=== PATIENT | male | born 1965 | race Caucasian/White ===

== ENCOUNTER → 2020-02-23 15:12 | Outpatient (BNVA) | payer SELFPAY | PROVIDERS: Family Provider Nurse Practitioner Family; PCP Nurse Practitioner Family; Visit Provider Nurse Practitioner Family | DX: I10 Essential (primary) hypertension (principal); E11.59 Type 2 diabetes mellitus with other circulatory complications; I25.10 Atherosclerotic heart disease of native coronary artery without angina pectoris; E78.5 Hyperlipidemia, unspecified; E11.9 Type 2 diabetes mellitus without complications | CPT/HCPCS: 80053; 80061; 82044; 83036 ==

== ENCOUNTER → 2022-01-08 09:40 | Outpatient (BNVA) | payer SELFPAY | PROVIDERS: Family Provider Nurse Practitioner Family; PCP Registered Nurse; Visit Provider Nurse Practitioner | DX: E11.59 Type 2 diabetes mellitus with other circulatory complications (principal); I25.10 Atherosclerotic heart disease of native coronary artery without angina pectoris; I10 Essential (primary) hypertension; M25.512 Pain in left shoulder; R53.83 Other fatigue | CPT/HCPCS: 80053; 80061; 83036; 84403; 84443; 85025 ==

== ENCOUNTER → 2022-01-16 00:01 | Outpatient (BNVA) | payer SELFPAY | PROVIDERS: Family Provider Nurse Practitioner Family; PCP Registered Nurse; Visit Provider Nurse Practitioner | DX: E11.59 Type 2 diabetes mellitus with other circulatory complications (principal); I25.10 Atherosclerotic heart disease of native coronary artery without angina pectoris; E78.5 Hyperlipidemia, unspecified | CPT/HCPCS: 80048 ==

== ENCOUNTER → 2022-04-24 16:39 | Outpatient (BNVA) | payer SELFPAY | PROVIDERS: Family Provider Nurse Practitioner Family; PCP Registered Nurse; Visit Provider Nurse Practitioner Family | DX: E11.9 Type 2 diabetes mellitus without complications (principal); L02.91 Cutaneous abscess, unspecified; E11.65 Type 2 diabetes mellitus with hyperglycemia; M25.50 Pain in unspecified joint; E11.40 Type 2 diabetes mellitus with diabetic neuropathy, unspecified | CPT/HCPCS: 87070; 87077; 87184 ==

== ENCOUNTER → 2023-07-21 13:18 | Outpatient (BNVA) | payer SELFPAY | PROVIDERS: Family Provider Nurse Practitioner Family; PCP Registered Nurse; Visit Provider Nurse Practitioner Family | DX: E11.40 Type 2 diabetes mellitus with diabetic neuropathy, unspecified (principal); E11.65 Type 2 diabetes mellitus with hyperglycemia | CPT/HCPCS: 80053; 81000; 83036; 84443; 85025 ==

== ENCOUNTER 2023-12-17 11:46 | Emergency (ER) | payer SELFPAY ==
--- NOTE | 2023-12-17 11:45 | ECG_ITS ---
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 Measurements Intervals [place] Rate: 99 P: 83 TX: 148 QRS: 83 QRSD: 90 T: 89 QT: 326 QTc: 419 Interpretive Statements SINUS RHYTHM Compared to ECG 11/07/2015 05:23:56 No significant changes Electronically Signed On 12-17-2023 18:41:40 CDT by Claudia August M.D. [id number] f
--- NOTE | 2023-12-17 11:47 | XRR_ITS ---
PROCEDURE INFORMATION: Exam: XR Chest Exam date and time: 12/17/2023 12:07 PM Age: 58 years old Clinical indication: Pain; Angina pectoris; Additional info: Cp TECHNIQUE: Imaging protocol: Radiologic exam of the chest. Views: 1 view. COMPARISON: No relevant prior studies available. FINDINGS: Lungs: Unremarkable. No consolidation. Pleural spaces: Unremarkable. No pleural effusion. No pneumothorax. Heart/Mediastinum: Unremarkable. No cardiomegaly. Bones/joints: Mild and moderate multilevel spondylosis. Surgical hardware attached to the lower cervical spine. XR/XR chest 1V portable [id number] IMPRESSION: No acute disease.
[2023-12-17 11:49] VITALS: BP 173/89; PULSE 95; RESP 16; TEMP 36.5; O2SAT 100; BMI 26.9
--- NOTE | 2023-12-17 12:17 | ED_ITS ---
HPI - Chest Pain 2 General: Chief Complaint: Chest Pain Stated Complaint: chest pain Time Seen by Provider: 12/17/23 12:01 Source: patient Mode of arrival: ambulatory Limitations: no limitations History of Present Illness: 58-year-old male states he started havin g chest pain at 11:00 he states the pain was a pressure type pain in the center of his chest he did take aspirin his pain is now 2 out of 10 had some slight dyspnea with that denies any vomiting or diarrhea denies any fevers. Associated symptoms: Deny abdominal pain, dyspnea, fever(s), nausea or vomiting Review of Systems 2 Const: Denies: fever(s), chills, body aches or change in appetite ENMT: Denies: throat pain or dental pain Card: Reports: chest pain Resp: Denies: dyspnea GI: Denies: abdominal pain, nausea, vomiting or diarrhea Musc: Denies: neck pain or back pain Skin/Breast: Denies: rash Neuro: Denies: headache(s) PFSH ED 2 PFSH: Medical History (Updated 12/17/23 @ 15:08 by Loren Nichols MD) Poor control type I diabetes mellitus Diabetes Hyperlipemia HTN (hypertension) Coronary artery disease due to type 2 diabetes mellitus Hyperlipidemia Social History Smoking and tobacco/nicotine status: never used tobacco/nicotine Physical Exam 2 Const: COMMON NORMALS: no acute distress, patient oriented x3 and healthy appearing HENMT: COMMON NORMALS: normocephalic and atraumatic HEAD & SCALP: n ormocephalic and atraumatic Neck/C-Spine: COMMON NORMALS: full ROM and supple Chest: COMMONS NORMALS: normal inspection of the chest and normal palpation of entire chest wall Resp: COMMON NORMALS: normal respiratory effort, No retractions, No use of accessory muscles and clear to auscultation bilaterally AUSCULTATION: clear to auscultation bilaterally Cardio: COMMON NORMALS: regular rate, regular rhythm and No murmurs present (Cardio) RATE: regular rate RHYTHM: regular rhythm GI: COMMON NORMALS: Normal to inspection, nondistended, normoactive bowel sounds present, Soft to palpation, non-tender and no masses PALPATION: Yes Soft to palpation Extremity: COMMON NORMALS: normal to inspection and full ROM Neuro: COMMON NORMALS: patient oriented x3, moves all extremities and no focal motor deficits Psych: COMMON NORMALS: mental status grossly normal, Normal thought process present and cooperative THOUGHT PROCESS: Normal thought process present Skin: COMMON NORMALS: no rashes or lesions noted and no wounds GENERAL SKIN EXAM: no rashes or lesions noted Course 2 Vital Signs: Vital signs: Vital Signs Temperature 97.7 F 12/17/23 11:49 Pulse Rate 95 12/17/23 11:49 Respiratory Rate 16 12/17/23 11:49 Blood Pressure 173/89 12/17/23 11:49 Pulse Oximetry 100 12/17/23 11:49 Oxygen Delivery Me thod Room Air 12/17/23 11:49 MDM - Chest Pain Medical Decision Making Patient presents here with chest pain atypical in nature he has been well- appearing here his heart enzymes here are normal no signs of acute coronary syndrome he has no signs of dissection or pulmonary emobism, he stable for discharge is to follow-up with PCP and return if worsening he understands agrees to plan Medical Records I reviewed the patient's medical records. Lab Data I reviewed the patient's lab results. 12/17/23 12:10 12/17/23 12:10 Radiology Impressions Chest X-Ray 12/17/23 11:47 IMPRESSION: No acute disease. Laboratory Results WBC 7.33 10^3/uL (3.29-11.43) 12/17/23 12:10 RBC 4.75 10^6/uL (3.85-5.65) 12/17/23 12:10 Hgb 14.90 g/dL (11.27-16.99) 12/17/23 12:10 Hct 41.7 % (37-53) 12/17/23 12:10 MCV 87.8 fl (82-101) 12/17/23 12:10 MCH 31.4 pg (27-33) 12/17/23 12:10 MCHC 35.7 g/dL (30-55) 12/17/23 12:10 RDW 12.0 % (12.1-15.1) L 12/17/23 12:10 Plt Count 216 10^3/cmm (157-399) 12/17/23 12:10 MPV 9.8 fL (7.4-10.4) 12/17/23 12:10 Neut % (Auto) 72.5 % 12/17/23 12:10 Lymph % (Auto) 19.0 % 12/17/23 12:10 [place] % (Auto) 6.7 % 12/17/23 12:10 Eos % (Auto) 0.5 % 12/17/23 12:10 Baso % (Auto) 0.8 % 12/17/23 12:10 Neut # (Auto) 5.31 10^3/uL (1.8-7.7) 12/17/23 12:10 Lymph # (Auto) 1.4 10^3/uL (0.8-4.8) 12/17/23 12:10 [place] # (Auto) 0.5 10^3/uL (0.2-0.9) 12/17/23 12:10 Eos # (Auto) 0.0 10^3/uL (0.0-0.8) 12/17/23 12:10 Baso # (Auto) 0.1 10^3/uL (0.0-0.1) 12/17/23 12:10 Nucleated RBC % (auto) 0 % 12/17/23 12:10 Nucleated RBCs # 0.0 /100WBC 12/17/23 12:10 PT 13.40 SECONDS (12.1-14.9) 12/17/23 12:10 INR 0.99 (0.8-1.2) 12/17/23 12:10 Sodium 130 mmol/L (136-145) L 12/17/23 12:10 Potassium 4.9 mmol/L (3.5-5.1) 12/17/23 12:10 Chloride 96 mmol/L (98-107) L 12/17/23 12:10 Carbon Dioxide 24 mmol/L (22-29) 12/17/23 12:10 Anion Gap 14.9 (5-19) 12/17/23 12:10 BUN 17 mg/dL (6-20) 12/17/23 12:10 Creatinine 0.7 mg/dL (0.7-1.2) 12/17/23 12:10 GFR Calculation 116.7 mL/min (90-130) 12/17/23 12:10 Glucose 410 mg/dL (65-115) H 12/17/23 12:10 Calculated Osmolality 289 mOsm/kg (285-295) 12/17/23 12:10 Calcium 10.0 mg/dL (8.5-10.5) 12/17/23 12:10 Total Bilirubin 1.3 mg/dL (0.15-1.2) H 12/17/23 12:10 AST 17 U/L (0-40) 12/17/23 12:10 ALT 15 U/L (0-41) 12/17/23 12:10 Alkaline Phosphatase 92 U/L (40-130) 12/17/23 12:10 Troponin T Baseline 12 ng/L (0-15) 12/17/23 12:10 Troponin T 120 Minute 10.50 ng/L (0-15) 12/17/23 14:18 Delta Troponin T -1.50 ABS# (0-10) L 12/17/23 14:18 Total Protein 7.2 g/dL (6.6-8.7) 12/17/23 12:10 Albumin 4.4 g/dL (3.5-5.2) 12/17/23 12:10 Globulin 2.8 g/dL (1.3-4.6) 12/17/23 12:10 Lipase 100 U/L (13-60) H 12/17/23 12:10 All radiology interpretation(s) finalized by discharge EKG Data EKG 1: I personally reviewed and interpreted this EKG as follows: EKG interpretation date: 12/17/23 EKG interpretation time: 13:36 Interpretation: nsr hr [address] or t wave abnormalities qrs 85 qtc 390 Discharge Plan Discharge Patient Disposition: Home Clinical Impression: Chest pain Condition: Stable Prescriptions: No Action amitriptyline 50 mg tablet 50 mg PO DAILY Qty: 30 1RF metformin 1,000 mg tablet 1,000 mg PO BIDWMEAL Qty: 180 0RF Discharge Orders: Discharge ED (Routine); Ordered 12/17/23 Ordered By: Loren Nichols Referrals: Zana Dutta FNP [Primary Care Provider] - 1-3 days Discharge Diet: Advance as tolerated Discharge Activity: Resume usual activity Patient Instructions: Chest Pain (ED) Coding Level of Care Code ED Center Consultant for Chg Pardeep
[2023-12-17 12:21] LABS: Basophils # 0.1 10^3/uL (0.0-0.1); Basophils % 0.8 %; Eosinophils % 0.5 %; Hematocrit 41.7 % (37-53); Lymphocytes # 1.4 10^3/uL (0.8-4.8); Mean Corpuscular HGB Conc 35.7 g/dL (30-55); Mean Corpuscular Hemoglobin 31.4 pg (27-33); Mean Corpuscular Volume 87.8 fl (82-101); Mean Platelet Volume 9.8 fL (7.4-10.4); Monocytes # 0.5 10^3/uL (0.2-0.9); Monocytes % 6.7 %; Neutrophils # 5.31 10^3/uL (1.8-7.7); Neutrophils % 72.5 %; Nucleated Red Blood Cells % 0 %; Platelet Count 216 10^3/cmm (157-399); Red Blood Count 4.75 10^6/uL (3.85-5.65); White Blood Count 7.33 10^3/uL (3.29-11.43)
[2023-12-17 12:33] LABS: INR 0.99 (0.8-1.2)
[2023-12-17] MEDS: nitroglycerin 0.4 mg sublingual Tablet 0.400000000000000022 MG SUBLINGUAL (12:38)
[2023-12-17 12:41] LABS: Troponin(5th) Baseline 12 ng/L (0-15)
[2023-12-17 12:47] LABS: Alanine Aminotransferase 15 U/L (0-41); Albumin Level 4.4 g/dL (3.5-5.2); Alkaline Phosphatase 92 U/L (40-130); Anion Gap 14.9 (5-19); Aspartate Amino Transferase 17 U/L (0-40); Blood Urea Nitrogen 17 mg/dL (6-20); Carbon Dioxide 24 mmol/L (22-29); Chloride 96 mmol/L (98-107); Creatinine Clr Calc Pharmacy 145.7027; Globulin 2.8 g/dL (1.3-4.6); Glomerular Filtration Rate 116.7 mL/min (90-130); Glucose 410 mg/dL (65-115); Lipase 100 U/L (13-60); Osmolality Calculated 289 mOsm/kg (285-295); Potassium 4.9 mmol/L (3.5-5.1); Sodium 130 mmol/L (136-145); Total Bilirubin 1.3 mg/dL (0.15-1.2); Total Protein 7.2 g/dL (6.6-8.7)
--- NOTE | 2023-12-17 13:48 | ECG_ITS ---
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 Measurements Intervals [place] Rate: 96 P: 68 SC: 173 QRS: 80 QRSD: 85 T: 79 QT: 337 QTc: 426 Interpretive Statements SINUS RHYTHM Compared to ECG 12/17/2023 11:45:31 No significant changes Electronically Signed On 12-17-2023 18:46:29 CDT by Claudia August M.D. [id number]
[2023-12-17 13:51] VITALS: PULSE 91; RESP 18; O2SAT 97
[2023-12-17 14:51] VITALS: PULSE 90; RESP 17; O2SAT 99
[2023-12-17 15:06] VITALS: RESP 16; O2SAT 99
[2023-12-17] MEDS: morphine 4 mg/mL SDV 1 mL IVP (15:06)
--- NOTE | 2023-12-17 17:48 | ECG_ITS ---
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 Measurements Intervals [place] Rate: 90 P: 64 [place]: 186 QRS: 81 QRSD: 85 T: 77 QT: 345 QTc: 422 Interpretive Statements SINUS RHYTHM Compared to ECG 12/17/2023 13:36:13 No significant changes Electronically Signed On 12-17-2023 18:48:54 CDT by Claudia August M.D. [id number]
== END 2023-12-17 15:25 | disposition home or self-care (01) ==
PROVIDERS: Emergency Provider Emergency Medicine; PCP Nurse Practitioner Family
DX: R07.9 Chest pain, unspecified (principal); Z79.84 Long term (current) use of oral hypoglycemic drugs; E10.9 Type 1 diabetes mellitus without complications; E78.5 Hyperlipidemia, unspecified; I10 Essential (primary) hypertension; I25.10 Atherosclerotic heart disease of native coronary artery without angina pectoris
CPT/HCPCS: 36415; 71045; 80053; 83690; 84484; 85025; 85610; 93005; 96374; 99285; J2270

== ENCOUNTER → 2024-02-05 10:30 | Outpatient (BNVA) | payer MEDICARE, SELFPAY | PROVIDERS: PCP Nurse Practitioner Family; Referring Provider Nurse Practitioner Family; Visit Provider Student in an Organized Health Care Education/Training Program | DX: S89.92XA Unspecified injury of left lower leg, initial encounter; S83.8X2A Sprain of other specified parts of left knee, initial encounter; W18.42XA Slipping, tripping and stumbling without falling due to stepping into hole or opening, initial encounter | CPT/HCPCS: 20610; 73560; 73565; 99204; J3301 ==

== ENCOUNTER → 2024-03-09 10:27 | Outpatient (BNVA) | payer MEDICARE, SELFPAY | PROVIDERS: PCP Nurse Practitioner Family; Visit Provider Nurse Practitioner Family | DX: I25.10 Atherosclerotic heart disease of native coronary artery without angina pectoris (principal); E78.5 Hyperlipidemia, unspecified; E11.65 Type 2 diabetes mellitus with hyperglycemia; E11.59 Type 2 diabetes mellitus with other circulatory complications | CPT/HCPCS: 80053; 80061; 83036; 85025 ==

== ENCOUNTER → 2024-03-31 09:07 | Outpatient (BNVA) | payer MEDICARE, SELFPAY | PROVIDERS: PCP Nurse Practitioner Family; Visit Provider Physician Assistant | DX: S83.8X2A Sprain of other specified parts of left knee, initial encounter; S89.92XA Unspecified injury of left lower leg, initial encounter; X58.XXXA Exposure to other specified factors, initial encounter; M25.562 Pain in left knee | CPT/HCPCS: 99213 ==

== ENCOUNTER 2024-05-04 09:05 | Outpatient (CLI) | payer MEDICARE, SELFPAY ==
--- NOTE | 2024-05-04 09:30 | MR_ITS ---
WS: [id number] MRI LEFT KNEE HISTORY: left knee pain COMPARISON: Radiograph 02/05/2024 Anterior cruciate ligament: Partial tear of the ACL. The distal anterior bundle fibers are intact alt sandra thinned. The posterior fibers are torn. Posterior cruciate ligament: Intact. Medial collateral ligament: Intact. Posterior lateral corner structures: Intact. Medial menisci: Posterior meniscal tear involving the supra articular surface towards the free edge. Lateral meniscus: Intact. Normal signal, size and shape. Extensor mechanism: Distal quadriceps tendon and patellar tendons are intact. Fluid and soft tissue: No joint effusion. No Pereira's cyst. Osseous and articular structures: Patellofemoral compartment: Normal. Medial compartment: No significant joint space narrowing. No marrow edema. Lateral compartment: Very mild chondromalacia along the weightbearing surfaces of the cartilage. MR/MR knee LT wo con* [id number] IMPRESSION: 1. High-grade partial tear of the distal ACL. Posterior fiber bundle is torn a nd retracted. 2. Tear involving the superior surface of the posterior horn medial meniscus t owards the meniscal root and free edge. 3. No marrow edema.
== END 2024-05-04 09:06 | disposition home or self-care (01) ==
LOC: RAD 09:06
PROVIDERS: PCP Nurse Practitioner Family; Visit Provider Physician Assistant
DX: S83.512A Sprain of anterior cruciate ligament of left knee, initial encounter (principal); S83.242A Other tear of medial meniscus, current injury, left knee, initial encounter; X58.XXXA Exposure to other specified factors, initial encounter
CPT/HCPCS: 73721

== ENCOUNTER → 2024-05-18 07:48 | Outpatient (BNVA) | payer MEDICARE, SELFPAY | PROVIDERS: PCP Nurse Practitioner Family; Visit Provider Student in an Organized Health Care Education/Training Program | DX: S83.412A Sprain of medial collateral ligament of left knee, initial encounter (principal); S83.242A Other tear of medial meniscus, current injury, left knee, initial encounter; X58.XXXA Exposure to other specified factors, initial encounter | CPT/HCPCS: 20610; 99214; J3301 ==

== ENCOUNTER → 2024-06-10 09:31 | Outpatient (BNVA) | payer MEDICARE, SELFPAY | PROVIDERS: PCP Nurse Practitioner Family; Visit Provider Nurse Practitioner Family | DX: E11.59 Type 2 diabetes mellitus with other circulatory complications (principal); I25.10 Atherosclerotic heart disease of native coronary artery without angina pectoris; E11.9 Type 2 diabetes mellitus without complications | CPT/HCPCS: 83036 ==

== ENCOUNTER 2024-08-02 05:32 | Day surgery (SDC) | payer MEDICARE, SELFPAY ==
[2024-08-02] VITALS (11 sets, daily range): BP systolic 124–151; BP diastolic 70–92; PULSE 82–88; RESP 12–18; TEMP 36.1–36.4; O2SAT 95–97
[2024-08-02] MEDS: acetaminophen 1,000 MG/100 ML PIGGYBACK 400 MG IV (06:11)
[2024-08-02] MEDS: ketorolac 30 mg/mL INJ IVP (06:12)
[2024-08-02] MEDS: sodium chloride 0.9% 1,000 ML 30 ML IV (06:12)
[2024-08-02 06:13] LABS: Glucose Point of Care 120 mg/dL (70-110)
[2024-08-02] MEDS: scopolamine 1.5 Patch 1 PATCH TRANSDERMA (06:13)
--- NOTE | 2024-08-02 06:45 | W.PM.OPSFHP ---
Same Day Surgery H&P Indication for Procedure/HPI DATE OF PROCEDURE: August 02, 2024 CHIEF COMPLAINT/INDICATIONFOR SURGICAL PROCEDURE: Left knee medial meniscus tear, partial tear ACL PREOP DIAGNOSIS: Left knee medial meniscus tear, partial ACL tear PLANNED PROCEDURE: Operation Date: 08/02/24 07:00 Proposed Procedures p Knee Arthroscopy Knee Arthroscopy w/ Medial Menisectomy(Left) - Castro Winters DO s ACL debridement(Left) - Castro Winters DO Medications/Allergies* Home Medications Medication Instructions Recorded Confirmed Type blood sugar diagnostic (True 05/27/24 05/27/24 History Metrix Glucose Test Strip) Allergies/Adverse Reactions Allergy/AdvReac Type Severity Reaction Status Date / Time gabapentin Allergy Severe Unknown Verified 08/02/24 05:57 red dye Allergy Severe ALGY-Anaphy Verified 08/02/24 05:57 laxis Current Medications: Generic Name Dose Route Start Last Admin Trade Name Freq PRN Reason Stop Dose Admin Sodium Chloride 1,000 mls @ 30 mls/hr 08/02/24 05:45 08/02/24 06:12 Sodium Chloride 0.9% IV 08/03/24 05:44 30 mls/hr .Q24H DEB Administration Pertinent History/Comorbid Conditions* Medical History (Updated 05/18/24 @ 13:45 by Castro Winters DO) Left knee injury Disability examination Joint pain Poor control type I diabetes mellitus Diabetes Hyperlipemia HTN (hypertension) Coronary artery disease due to type 2 diabetes mellitus Hyperlipidemia Social History Smoking and tobacco/nicotine status: former use of tobacco/nicotine Pertinent Exam Findings alert, oriented x 3, operative site marked and procedure specific exam findings Please refer to detailed orthopedic examination on 05/17/2024 listed below: Left knee examination: Stable with varus/valgus stress 0-greater than 115smooth hip medial joint back feeder plywood layup line to palpation mild lateral joint line positive mcmurrays negative anterior drawers stable Naz's tender over intrapatellar fat pad no patellar apprehension no patellar crepitation Recommendations Surgery/Procedure today Other Plans: Plan to proceed to the OR today for left knee diagnostic and surgical arthroscopy with partial medial meniscectomy versus repair, possible ACL debridement. Patient at this point in time is failed conservative treatment he had tried an injection roughly 11 weeks ago and this only gave a couple weeks of relief at this point in time he is ready to proceed with surgical intervention at this point in time he is over 4 to 6 weeks out from his cortisone injection. He understands the ins and outs procedure the risk benefits complication alternatives surgery and through shared decision-making elects proceed with surgical intervention. All questions answered at this time. Will proceed with surgery today. Coding Level of Care Code Acute Code for Chg Fwd
--- NOTE | 2024-08-02 06:53 | P.ANESASSM_ITS ---
Pre-Anesthetic Assessment Height/Weight: Height 1.88 m Temp Pulse Resp BP Pulse Ox O2 Del Method 97 F L 88 18 129/72 97 Room Air 08/02/24 05:54 08/02/24 05:54 08/02/24 05:54 08/02/24 06:13 08/02/24 05:54 08/02/24 06:04 Preop Diagnosis: Left knee medial meniscus tear, partial ACL tear Operation Date: 08/02/24 07:00 Proposed Procedures p Knee Arthroscopy Knee Arthroscopy w/ Medial Menisectomy(Left) - Castro Winters DO s ACL debridement(Left) - Castro Winters DO Familial anesthetic complications: None Was Beta Maggy taken within 24 hours: N/A Was Clonidine taken within 24 hours: N/A Last intake: Intake Last Liquid Date 08/01/24 Last Liquid Time 21:00 Last Solid Date 08/01/24 Last Solid Time 21:00 Social No alcohol and No tobacco Exam alert, oriented x 3, clear to auscultation bilaterally and regular rate & rhythm CV/HEM Coronary Artery Disease and Hypertension Metabolic Diabetes Mellitus and Hyperlipidemia Anesthetic Plan ASA status: 3 Anesthesia: General Risk of > 500 ml blood loss (7ml/kg in children): No Other Pertinent Information States he hasn't taken mounjaro in 3 weeks Medications/Allergies Home Medications Medication Instructions Recorded Confirmed Last Taken Type sildenafil 100 mg tablet (Viagra) 100 mg PO DAILY PRN sexual 03/09/24 07/29/24 Unknown Rx activity #10 tabs flash glucose scanning reader #1 ea 03/10/24 05/27/24 Unknown Rx (FreeStyle Dolores 2 [place]) flash glucose sensor (FreeStyle #1 ea 03/10/24 05/27/24 Unknown Rx Dolores 14 Day Sensor kit) tirzepatide 7.5 mg/0.5 mL 7.5 mg (0.5 mL) SUBCUT .weekly #2 03/30/24 07/29/24 08/01/24 Rx subcutaneous pen injector mL (Mounjaro) flash glucose sensor (FreeStyle #1 ea 05/18/24 05/27/24 Unknown Rx Dolores 2 Sensor kit) trazodone 50 mg tablet 100 mg (2 x 50 mg) PO .hs 09/10/24 11/21/24 11/24/24 Rx sleep/neuropathy #180 tabs blood sugar diagnostic (True 05/27/24 05/27/24 Unknown History Metrix Glucose Test Strip) blood sugar diagnostic (True #100 ea 05/27/24 05/27/24 Unknown Rx Metrix Glucose Test Strip) metformin 1,000 mg tablet 1,000 mg PO BIDWMEAL #180 tabs 05/27/24 07/29/24 08/01/24 Rx blood-glucose meter #1 ea 05/28/24 Unknown Rx empagliflozin 25 mg tablet 25 mg PO DAILY #90 tabs 06/08/24 07/29/24 08/01/24 Rx (Jardiance) Allergies Allergy/AdvReac Type Severity Reaction Status Date / Time gabapentin Allergy Severe Unknown Verified 08/02/24 05:57 red dye Allergy Severe ALGY-Anaphy Verified 08/02/24 05:57 laxis Current Medications Generic Name Dose Route Start Last Admin Trade Name Freq PRN Reason Stop Dose Admin Sodium Chloride 1,000 mls @ 30 mls/hr 08/02/24 05:45 08/02/24 06:12 Sodium Chloride 0.9% IV 08/03/24 05:44 30 mls/hr .Q24H DEB Administration PFSH Anesthesia Medical History Left knee injury Disability examination Joint pain Poor control type I diabetes mellitus Diabetes Hyperlipemia HTN (hypertension) Coronary artery disease due to type 2 diabetes mellitus Hyperlipidemia Social History Smoking and tobacco/nicotine status: former use of tobacco/nicotine Data Anesthesia Cardiac Studies: No Data to Display
[2024-08-02] MEDS: ceFAZolin 2,000 MG in sodium chloride 0.9% (plus) 50 ML 100 MG IV (06:59)
--- NOTE | 2024-08-02 07:52 | W.PM.BPON ---
Date of Procedure: 08/02/2024 Surgeon: Castro Winters DO Associate Consulting Engineer(s): Miguel Winters PA-C Procedure(s) performed: Left knee diagnostic and surgical arthroscopy with partial medial meniscectomy Left knee diagnostic and surgical arthroscopy with ACL debridement Left knee diagnostic and surgical arthroscopy with patellofemoral joint chondroplasty Left knee diagnostic and surgical arthroscopy with extensive synovectomy Findings of the procedure(s): Patient was found to have tear of the posterior horn the medial meniscus root was found to be intact patient underwent partial medial meniscectomy and partial ACL tear underwent gentle ACL debridement and grade 2- 3 chondromalacia in the patellofemoral joint particularly in the trochlear groove underwent chondroplasty in this area and had extensive synovitis underwent extensive synovectomy. Underwent procedure as planned without issues or complications. Estimated blood loss: 5 mL Specimen(s) removed: None Post-operative diagnosis: Left knee medial meniscus tear, partial ACL tear, extensive synovitis, chondromalacia
--- NOTE | 2024-08-02 07:54 | P.OP_ITS ---
Operative Report Date of procedure: August 02, 2024 Surgeon: Castro Winters DO Solution Director: Miguel Winters PA-C: PA was necessary for assistance in this case with leg positioning, assistance with instrumentation, wound closure and dressing application. 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 Procedure done: Left?knee?diagnostic and surgical arthroscopy partial medial meniscectomy Left?knee?diagnostic and surgical arthroscopy with extensive synovectomy of the medial lateral and patellofemoral compartments Left?knee?diagnostic and surgical arthroscopy with patellofemoral compartment chondroplasty Left knee diagnostic and surgical arthroscopy with ACL debridement Surgeon: Castro Winters DO Estimated blood loss: 5mL Tourniquet: No tourniquet was used IV fluids: See anesthesia record Complications: None Findings: See operative report narrative Condition: stable Disposition: same day Brief History: Patient is a 58-year-old male with Left?knee?pain.? Patient has failed conservative treatment who has been worked up for Left??knee?pain in the outpatient setting. MRI findings consistent with tear of the medial meniscus and partial tear of the ACL. talked in the office about treatment options patient would like to proceed with a Left?knee?diagnostic and surgical arthroscopy with partial medial meniscectomy versus repair and possible ACL debridement. Patient understand the ins and outs of the procedure the risk benefits complication alternatives to treatment options.? Understanding risk of surgery patient agree to proceed with surgical intervention.? Patient understand this may not provide patient with complete symptomatic relief of? pain as patient does have some underlying arthritis.? Understanding this and patient agree to proceed with francois rgical intervention all questions answered. Procedure: Patient seen and evaluated in the preoperative holding area.? Consent was reviewed and signed with patient.? Correct extremity was then marked.? Patient seen evaluated Anesthesia Department once cleared for surgery patient was taken back to the operative suite.? Patient was transported onto the OR table in supine position.? All bony prominences well-padded patient was appropriate secured to the bed.? Once appropriately anesthetized a nonsterile tourniquet was applied to the Left thigh.? The Left lower extremity was then prepped and draped in standard orthopedic fashion.? Final timeout performed.? Patient received appropriate preoperative antibiotics. Patient received local anesthetic of lidocaine with epinephrine into the joint as well as around the portal sites.? No tourniquet was inflated A standard 2 portal vertical incision diagnostic and surgical arthroscopy of the Left?knee?was performed in standard fashion.? Small stab incision made in the inferolateral portal introduced trocar and arthroscope into the suprapatellar pouch.? Suprapatellar pouch was subsequently visualized and found to have significant synovitis but no loose bodies.? Patient had noticeable significant inflamed infrapatellar fat pad and thickening hypertrophic within the patellofemoral compartment.? ?The medial gutter was free of loose bodies I then introduced the arthroscope into the medial compartment.? Within the medial compartment I then established my inferior medial working portal utilizing spinal needle outside in technique.? Once established I then visualized our articular cartilage of the medial compartment with a valgus stress.? Patient was found to have grade 1-2 chondromalacia throughout the medial compartment.? Next I inspected the meniscus.? With an arthroscopic probe was utilized to visual? all aspects of the meniscus.? Meniscal root was found to be intact.? Meniscus was found to be torn at the body to posterior horn and in the white white zone unable to be repaired at this time.? I then subsequently introduced a basket forceps as well as arthroscopic shaver to perform a partial medial meniscectomy to stable meniscal tissue and then utilized a thermal wand to anneal the edges.? Next, I then performed a synovectomy of the medial compartment.? This completed medial compartment work. Next a introduced the arthroscope to the intercondylar notch.? PCL was intact. The PCL had signs of a partial tear I subsequently gently debrided the frayed loose edges of the anterior bundle gross fibers appear to be intact consistent with a partial ACL tear. ACL debridement was complete. patient had significant thickening of the infrapatellar fat pad spanning into the medial and lateral compartments.? I then performed an extensive synovectomy with the arthroscopic shaver of the patellofemoral medial and lateral compartments as well as the intercondylar notch. No loose bodies were noted within the knee. Next I introduced the arthroscope into the lateral compartment the lateral compartment was found to have grade 1-2 chondromalacia.? Lateral meniscus was found to be intact.? The root was intact.? Given the grade 1-2 chondromalacia there is no unstable cartilage pieces to perform chondroplasty.? This completed my work of the lateral compartment and then performed a synovectomy of the lateral compartment.? Next of the arthroscope was placed into the lateral gutter and this was free of loose bodies.? Finally I reintroduced the arthroscope into the patellofemoral compartment.? The patellofemoral was found to have grade 2-3chondromalacia of the patellofemoral compartment.? There was some loose unstable pieces in the trochlear groove I did utilize a arthroscopic shaver and thermal wand to perform a patellofemoral joint chondroplasty. At this point I utilized arthroscopic shaver as well as thermal wand to perform extensive synovectomy of the patellofemoral compartment. This completed my work of the patellofemoral space.? I then switch my portal sites to the medial working portal.? Completed the rest of my synovectomy and the rest of my examination arthroscopy was normal. All fluid was suctioned from the joint.? ?All instruments were withdrawn.? Portal sites were closed with interrupted nylon suture.? portal sites were then covered with with Xeroform 4 x 4's ABD Curlex and Wero wrap.? Patient was then subsequently awakened from anesthesia and taken to PACU in stable condition. Disposition: Patient taken to PACU in stable condition recovering well.? Will receive appropriate discharge structure as well as pain medication postoperatively as well as? DVT prophylaxis.we will have patient follow-up with us in the office in 2 weeks.? We will weightbearing as tolerated to the Left lower extremity.? Patient understands and agrees with current plan.? All questions answered.
[2024-08-02] MEDS: lidocaine-epi 2% PF 1:200,000 20 mL SDV 40 ML XX (08:09)
--- NOTE | 2024-08-02 08:26 | PM.PACU ---
PACU note Narrative: Patient is a 58-year-old male that just underwent a left knee diagnostic and surgical arthroscopy. Pt transferred to PACU in stable condition. Dressing is dry. pt is awake and alert. pt can wiggle toes and plantarflex and dorsiflex foot. pt able to perform straight leg raise, Femoral nerve intact. Distal pulses are palpable toes are warm and well-perfused. Cap refill is normal and under 2 seconds. Sensation to foot is intact. Pain is controlled. Exam: awake Disposition: discharged
[2024-08-02] MEDS: HYDROcodone-acetaminophen 5-325 mg Tablet 1 TAB PO (09:11)
--- NOTE | 2024-08-02 09:30 | ANE.PACU2 ---
Inpatient post-anesthesia follow up: Airway intact: Yes Vital signs: Temperature 97.6 F Pulse Rate 82 Respiratory Rate 16 Blood Pressure 151/82 Pulse Oximetry 97 Oxygen Delivery Me thod Room Air Oxygen Flow Rate Fraction of Inspir ed Oxygen Hydration adequate: Yes Nausea and vomiting: No Pain level: 1 Mental status: Baseline
== END 2024-08-02 09:30 | disposition home or self-care (01) ==
PROVIDERS: PCP Nurse Practitioner Family; Visit Provider Student in an Organized Health Care Education/Training Program
PROC: (CPT 29870; principal; 2024-08-02 07:00)
PROC: (CPT 27407; 2024-08-02 07:00)
DX: S83.242A Other tear of medial meniscus, current injury, left knee, initial encounter (principal); S83.512A Sprain of anterior cruciate ligament of left knee, initial encounter; X58.XXXA Exposure to other specified factors, initial encounter; M65.98 Unspecified synovitis and tenosynovitis, other site; M22.42 Chondromalacia patellae, left knee; E11.69 Type 2 diabetes mellitus with other specified complication; E78.5 Hyperlipidemia, unspecified; I10 Essential (primary) hypertension; I25.10 Atherosclerotic heart disease of native coronary artery without angina pectoris; Z87.891 Personal history of nicotine dependence; Z79.84 Long term (current) use of oral hypoglycemic drugs
CPT/HCPCS: 29876; 29881; 36416; 82962; J0131; J0330; J0690; J1100; J1885; J2371; J2405; J2704; J3010; J7030

== ENCOUNTER → 2024-08-17 13:16 | Outpatient (BNVA) | payer MEDICARE, SELFPAY | PROVIDERS: PCP Nurse Practitioner Family; Visit Provider Physician Assistant | DX: Z98.890 Other specified postprocedural states (principal) | CPT/HCPCS: 99024 ==

== ENCOUNTER → 2024-09-30 08:42 | Outpatient (BNVA) | payer MEDICARE, SELFPAY | PROVIDERS: PCP Nurse Practitioner Family; Visit Provider Nurse Practitioner Family | DX: I25.10 Atherosclerotic heart disease of native coronary artery without angina pectoris (principal); E11.59 Type 2 diabetes mellitus with other circulatory complications; E11.65 Type 2 diabetes mellitus with hyperglycemia | CPT/HCPCS: 83036 ==

== ENCOUNTER → 2024-10-12 07:59 | Outpatient (BNVA) | payer MEDICARE, SELFPAY | PROVIDERS: PCP Nurse Practitioner Family; Visit Provider Physician Assistant | DX: Z98.890 Other specified postprocedural states (principal) | CPT/HCPCS: 99024 ==

== ENCOUNTER → 2024-11-23 09:48 | Outpatient (BNVA) | payer MEDICARE, SELFPAY | PROVIDERS: PCP Nurse Practitioner Family; Visit Provider Physician Assistant | DX: M94.262 Chondromalacia, left knee (principal); Z98.890 Other specified postprocedural states; S83.412D Sprain of medial collateral ligament of left knee, subsequent encounter; S83.242D Other tear of medial meniscus, current injury, left knee, subsequent encounter; X58.XXXD Exposure to other specified factors, subsequent encounter | CPT/HCPCS: 20610; 99213; J3301; J9999 ==

== ENCOUNTER 2024-12-22 09:33 | Outpatient (CLI) | payer MEDICARE, SELFPAY ==
--- NOTE | 2024-12-22 10:15 | USCV_ITS ---
Tj Perez Age: 59 Gender: M : 1965 Exam Date: 12/22/2024 09:47 Ordering Phys: Vick Dutta Technologist: R Exam Location[place] [facility] [place] Indication: dizziness Risk Factors: Previous Vascular Surgery: Right Brachial BP: / Left Brachial BP: / Right Left Velocity (cm/s) Spectral Plaque Velocity (cm/s) Spectral Plaque Syst/Diast Broadening Syst/Diast Broadening 68.20/ 14.70 Prox CCA 82.50 / 14.90 87.00/ 23.60 Mid CCA 81.50 / 24.70 110.60/21.20 Distal CCA 70.60 / 22.50 106.70/35.70 Prox ICA 64.60 / 20.50 120.80/39.20 Mid ICA 79.60 / 32.90 64.60/ 26.20 Distal ICA 72.50 / 30.50 101.40 ECA 84.90 1.00 ICA/CCA 0.90 Antegrade Vertebral Antegrade 48.10/ 12.60 cm/s 49.50/ 17.90 cm/s Tri Subclavian Tri 119.6 88.70 0 FINDINGS Comparison:. 06/24/16 No significant elevation of systolic or diastolic velocities. Waveforms are normal. Mild scattered carotid plaque. CONCLUSIONS Bilateral ICA stenosis less than 50%. No interval change since prior exam. Dr. Lola Barnard DO (Electronically Signed) Final Date: 22 December 2024 10:51 S
== END 2024-12-22 09:34 | disposition home or self-care (01) ==
LOC: RAD 09:34
PROVIDERS: PCP Nurse Practitioner Family; Visit Provider Nurse Practitioner Family
DX: R42 Dizziness and giddiness (principal); I65.23 Occlusion and stenosis of bilateral carotid arteries
CPT/HCPCS: 93880

== ENCOUNTER 2025-01-04 09:46 | Outpatient (CLI) | payer MEDICARE, SELFPAY ==
--- NOTE | 2025-01-04 09:51 | XRR_ITS ---
PROCEDURE INFORMATION: Exam: XR Cervical Spine Exam date and time: 01/04/2025 10:09 AM Age: 59 years old Clinical indication: Pain; Cervicalgia; Prior surgery; Surgery date: 6+ months; Surgery type: C-6-7 ceramic disc and screws, stentm k; Passing out intermittently since July, head bobbing randomly and uncontrollably; Additional info: M54.2 - cervicalgia, PT having mri CT too TECHNIQUE: Imaging protocol: Radiologic exam of the cervical spine. Views: 2 or 3 views. COMPARISON: MR angio head wo con [id number] 01/04/2025 10:06 AM FINDINGS: Bones/joints: Anterior cervical fusion C5 through C7. Anatomic alignment. Anterior lipping C3 through C5. The disc spaces are well maintained however. No lytic or sclerotic bone lesion. Soft tissues: See Bones/joints finding. XR/XR cervical spine 3V* [id number] IMPRESSION: Degenerative and postoperative findings.
--- NOTE | 2025-01-04 10:00 | CT_ITS ---
WS: [id number] CT HEAD NONCONTRAST HISTORY: R42 - Dizziness and giddiness TECHNIQUE: Contiguous axial imaging performed through the brain. Bone and soft tissue windows. Sagittal and coronal reformats reviewed. All CT scans at [facility] use at least one of these dose optimization techniques: automated exposure control; mA and/or kV adjustment per patient size (includes targeted exams where dose is matched to clinical indication); or iterative reconstruction. DLP: 1060.19 mGy.cm COMPARISON: None available. No acute intracranial hemorrhage, midline shift or mass effect. There is mild cerebral atrophy, predominantly in the frontal lobes. Mild small vessel disease. No prior infarct. Ventricles: Normal size with no hydrocephalus. No inferior displacement the cerebellar tonsils. Paranasal sinuses: As visualized are clear. Mastoid air cells: Well pneumatized. Calvarium and scalp: Skull is intact with no soft tissue edema or swelling. CT/CT head wo con* [id number] IMPRESSION: 1. No acute intracranial hemorrhage or edema. 2. Mild bifrontal atrophy and small vessel disease.
--- NOTE | 2025-01-04 11:30 | MR_ITS ---
WS: [email or web address] MRA HEAD TECHNIQUE: Axial 3-D TOF images obtained with axial images and axial, sagittal, and coronal 2-D reformatted images. CLINICAL INFORMATION: G25.9 - Extrapyramidal and movement disorder, unspecified COMPARISON: None. FINDINGS: LEFT dominant distal vertebral artery. Basilar artery is patent. Normal vascularity to the HEAD COUNSELOR territory bilaterally. Both ICAs are patent at the skull base. Normal vascularity to the MAHESH and MCA territories bilaterally. Patent anterior communicating artery. No evidence of proximal flow-limiting stenosis. MR/MR angio head con [id number] IMPRESSION: 1. Normal intracranial MRA.
== END 2025-01-04 09:47 | disposition home or self-care (01) ==
PROVIDERS: PCP Nurse Practitioner Family; Visit Provider Nurse Practitioner Family
DX: R42 Dizziness and giddiness (principal); R51.9 Headache, unspecified; G25.9 Extrapyramidal and movement disorder, unspecified; G31.89 Other specified degenerative diseases of nervous system; R93.0 Abnormal findings on diagnostic imaging of skull and head, not elsewhere classified; Z98.1 Arthrodesis status; R93.7 Abnormal findings on diagnostic imaging of other parts of musculoskeletal system
CPT/HCPCS: 70450; 70544; 72040

== ENCOUNTER → 2025-01-11 10:05 | Outpatient (BNVA) | payer MEDICARE, SELFPAY | PROVIDERS: PCP Nurse Practitioner Family; Visit Provider Nurse Practitioner Family | DX: E11.59 Type 2 diabetes mellitus with other circulatory complications (principal); I25.10 Atherosclerotic heart disease of native coronary artery without angina pectoris | CPT/HCPCS: 80053; 83036 ==

== ENCOUNTER 2025-01-13 09:21 | Outpatient (CLI) | payer MEDICARE, SELFPAY ==
--- NOTE | 2025-01-13 10:00 | CT_ITS ---
WS: [id number] CT CERVICAL SPINE HISTORY: M54.2 - Cervicalgia TECHNIQUE: Contiguous 2.0 mm axial imaging performed through the entire cervical spine. Sagittal and coronal reformats also performed. All CT scans at [facility] use at least one of these dose optimization techniques: automated exposure control; mA and/or kV adjustment per patient size (includes targeted exams where dose is matched to clinical indication); or iterative reconstruction. DLP: 151.97 mGy.cm COMPARISON: 07/27/2007, radiograph 01/04/2025 Prior anterior cervical fusion from C5-C7. Interbody spacers at C5-6 and C6-7 without subsidence or displacement. No hardware fracture is identified. No lucency surrounding the screws. No acute fractures. Facet joints are aligned. Large anterior bridging osteophytes most significant at C4-5. There is a lucency through the mid osteophyte which is well-corticated and does not appear to be an acute fracture. C2-C3: Normal. C3-C4: Osteophytic ridging with moderate hypertrophic changes in the facet joints. Central disc protrusion. Moderate bilateral foraminal stenosis. C4-C5: Osteophytic ridging with facet arthritis, LEFT greater than RIGHT. Small central disc protrusion. Mild foraminal stenosis. C5-C6: Osteophytic ridging with mild foraminal stenosis. Mild facet hypertrophy. C6-C7: Mild osteophytic ridging. No stenosis. C7-T1: Osteophytic ridging with mild RIGHT foraminal stenosis. Dense calcification in the carotid arteries near the bifurcations. Lung apices are clear. CT/CT cervical spin wo con* [id number] IMPRESSION: 1. No acute cervical spine fracture identified. 2. Anterior cervical fusion with interbody spacers from C5-C7 intact. 3. Large anterior bridging osteophyte between C4 and C5. There are lucencies t hrough the hypertrophic osteophyte formation at these are well-corticated and d o not appear to be acute fractures. 4. Multilevel hypertrophic facet joint arthritis. Most significant at C3-4. Mo derate bilateral foraminal stenosis at C3-4.
== END 2025-01-13 09:22 | disposition home or self-care (01) ==
PROVIDERS: PCP Nurse Practitioner Family; Visit Provider Nurse Practitioner Family
DX: M48.02 Spinal stenosis, cervical region (principal); Z98.1 Arthrodesis status; M25.78 Osteophyte, vertebrae; M47.892 Other spondylosis, cervical region; M50.21 Other cervical disc displacement, high cervical region; M50.221 Other cervical disc displacement at C4-C5 level; I65.23 Occlusion and stenosis of bilateral carotid arteries
CPT/HCPCS: 72125

== ENCOUNTER → 2025-01-21 08:27 | Outpatient (BNVA) | payer MEDICARE, SELFPAY | PROVIDERS: PCP Nurse Practitioner Family; Visit Provider Physician Assistant | DX: M25.562 Pain in left knee (principal); Z98.890 Other specified postprocedural states; M17.12 Unilateral primary osteoarthritis, left knee | CPT/HCPCS: 73560; 73565; 99213 ==

== ENCOUNTER → 2025-02-08 13:52 | Outpatient (BNVA) | payer MEDICARE, SELFPAY | PROVIDERS: PCP Nurse Practitioner Family; Visit Provider Physician Assistant | DX: M17.12 Unilateral primary osteoarthritis, left knee (principal); Z98.890 Other specified postprocedural states | CPT/HCPCS: 20610; 99213; J7318 ==

== ENCOUNTER 2025-04-18 10:45 | Outpatient (CLI) | payer MEDICARE, SELFPAY ==
--- NOTE | 2025-04-18 10:57 | MR_ITS ---
WS: [id number] MRI BRAIN WITH AND WITHOUT CONTRAST HISTORY: INTRACTABLE CHRONIC POST TRAUMATIC HEADACHE COMPARISON: CT head 01/04/2025 TECHNIQUE: Multiplanar imaging performed through the brain with MultiHance 18 ml's IV. Normal diffusion imaging. Remote lacunar infarct posterior RIGHT cerebellum. No large territory infarct. Scattered T2 and FLAIR signal hyperintensities in the subcortical white matter. Normal hippocampal formations. No susceptibility artifacts. Ventricles and extra-axial spaces are normal. Clivus and pituitary gland are normal. No inferior displacement of the cerebellar tonsils. Postcontrast images are negative for masses or vascular malformations. Dural venous sinuses are normal. Paranasal sinuses: Well aerated with no significant disease. Mastoid air cells: Normal. Calvarium and scalp: Normal. MR/MR head wo/w con [id number] IMPRESSION: 1. Normal diffusion imaging. No acute infarct. 2. Remote RIGHT cerebellar lacunar infarct. 3. No hemorrhage or hemosiderin deposition. 4. No significant atrophy. 5. No hippocampal atrophy. 6. No enhancing mass or vascular malformation. 7. Mild small vessel disease.
[2025-04-18] MEDS: gadobenate dimeglumine 20 mL vial IV (11:39)
== END 2025-04-18 10:46 | disposition home or self-care (01) ==
LOC: RAD 10:47
PROVIDERS: PCP Nurse Practitioner Family; Visit Provider Psychiatry & Neurology Neurology
DX: G44.321 Chronic post-traumatic headache, intractable (principal); I67.89 Other cerebrovascular disease; Z86.73 Personal history of transient ischemic attack (TIA), and cerebral infarction without residual deficits
CPT/HCPCS: 70553

== ENCOUNTER → 2025-04-19 08:37 | Outpatient (BNVA) | payer MEDICARE, SELFPAY | PROVIDERS: PCP Nurse Practitioner Family; Visit Provider Orthopaedic Surgery | DX: M48.02 Spinal stenosis, cervical region (principal); G57.90 Unspecified mononeuropathy of unspecified lower limb; G56.90 Unspecified mononeuropathy of unspecified upper limb; Z98.890 Other specified postprocedural states; G99.2 Myelopathy in diseases classified elsewhere | CPT/HCPCS: 72050; 99203 ==

== ENCOUNTER 2025-04-27 07:29 | Outpatient (CLI) | payer MEDICARE, SELFPAY ==
--- NOTE | 2025-04-27 08:00 | MR_ITS ---
WS: [email or web address] MRI CERVICAL SPINE NONCONTRAST TECHNIQUE: Sagittal T1, T2 and STIR imaging. Axial T2, gradient, and fiesta imaging. CLINICAL INFORMATION: Neck pain COMPARISON: CT 01/13/2025 FINDINGS: Straightening of the normal cervical lordosis. Prior postoperative changes ACDF C5-C7. C2-C3: Moderate facet arthropathy. Mild RIGHT bony foraminal narrowing. C3-C4: Shallow central disc protrusion. Mild central canal stenosis. Moderate facet arthropathy. Mild bilateral bony foraminal narrowing. C4-C5: LEFT paracentral disc osteophyte protrusion. Slight indentation of the cervical cord. Mild central canal stenosis. Moderate facet arthropathy. Mild LEFT greater than RIGHT bony foraminal narrowing. C5-C6: Prior ACDF. Moderate to severe LEFT bony foraminal narrowing. Mild RIGHT bony foraminal narrowing. C6-C7: ACDF. Mild LEFT bony foraminal narrowing. Mild facet arthropathy. C7-T1: Shallow central disc osteophyte protrusion. Spinal canal is patent. Severe LEFT and mild to moderate RIGHT bony foraminal narrowing. Visualized brain stem structures: Normal. Prevertebral soft tissues: Normal. Aberrant RIGHT subclavian artery partially visualized. MR/MR cervical spin wo con* [id number] IMPRESSION: 1. Straightening of the normal cervical lordosis. Prior ACDF C5-C7. 2. Mild central canal stenosis C3-C4 and C4-C5 with shallow disc osteophyte pr otrusions. 3. Moderate to severe LEFT C5-C6 and LEFT C7-T1 bony foraminal narrowing. 4. Shallow central disc protrusion C7-T1. 5. Partially visualized aberrant RIGHT subclavian artery.
== END 2025-04-27 07:30 | disposition home or self-care (01) ==
PROVIDERS: PCP Nurse Practitioner Family; Visit Provider Orthopaedic Surgery
DX: M47.812 Spondylosis without myelopathy or radiculopathy, cervical region (principal); M48.02 Spinal stenosis, cervical region; Z96.89 Presence of other specified functional implants; M50.21 Other cervical disc displacement, high cervical region; Z98.890 Other specified postprocedural states; M50.221 Other cervical disc displacement at C4-C5 level; M50.222 Other cervical disc displacement at C5-C6 level; M99.71 Connective tissue and disc stenosis of intervertebral foramina of cervical region; M48.03 Spinal stenosis, cervicothoracic region; Q25.48 Anomalous origin of subclavian artery; M50.23 Other cervical disc displacement, cervicothoracic region
CPT/HCPCS: 72141

== ENCOUNTER → 2025-05-03 07:54 | Outpatient (BNVA) | payer MEDICARE, SELFPAY | PROVIDERS: PCP Nurse Practitioner Family; Visit Provider Orthopaedic Surgery | DX: M48.02 Spinal stenosis, cervical region (principal); G99.2 Myelopathy in diseases classified elsewhere; Z01.818 Encounter for other preprocedural examination; Z09 Encounter for follow-up examination after completed treatment for conditions other than malignant neoplasm; Z98.890 Other specified postprocedural states; R42 Dizziness and giddiness | CPT/HCPCS: 36415; 80053; 81001; 83036; 85025; 99214 ==

== ENCOUNTER → 2025-05-13 09:28 | Outpatient (BNVA) | payer MEDICARE, SELFPAY | PROVIDERS: PCP Nurse Practitioner Family; Visit Provider Family Medicine | DX: Z01.818 Encounter for other preprocedural examination (principal) | CPT/HCPCS: 93005 ==

== ENCOUNTER 2025-05-16 05:32 | Inpatient (IN) | payer MEDICARE, SELFPAY ==
[2025-05-16] VITALS (10 sets, daily range): BP systolic 115–145; BP diastolic 71–89; PULSE 74–97; RESP 16–20; TEMP 36.2–36.7; O2SAT 94–100; BMI 23.1
--- NOTE | 2025-05-16 06:07 | P.ANESASSM_ITS ---
Pre-Anesthetic Assessment Height/Weight: Height 6 ft 2 in Preop Diagnosis: Cervical stenosis with myelopathy Operation Date: 05/16/25 07:00 Proposed Procedures p Anterior Cervical Discectomy & Fusion ACDF(Not Applicable) - Solomon Nicolas DO s Hardware Removal Cervical(Not Applicable) - Solomon Nicolas DO Was Beta Maggy taken within 24 hours: N/A Was Clonidine taken within 24 hours: N/A Social No alcohol and No tobacco Exam alert, oriented x 3, clear to auscultation bilaterally and regular rate & rhythm Airway Submandibular: within normal limits Cervical ROM: Other (Limited extension secondary to pain) Mallampati: Class III Dentition: full Comments: Comments: Poor dentition, denies any loose teeth Anesthetic Plan ASA status: 3 Anesthesia: General Other: No prior issues with anesthesia N.p.o. since yesterday evening History of DM, on tirzepatide. Last taken 05/08/2025 CAD history, s/p PCI in 2016 Denies any pulmonary issues Patient has been experiencing numbness/tingling in upper extremities as well as headaches and a few episodes of passing out. Patient states that he was told by physicians that this was all secondary to his neck Labs reviewed from 05/03/2025 and acceptable for procedure EKG sinus rhythm with an specific T wave abnormality Plan for GETA Medications/Allergies Home Medications ?Medication ?Instructions ?Recorded ?Confirmed ?Last Taken ?Type flash glucose scanning reader #1 ea 03/10/24 05/03/25 Unknown Rx (FreeStyle Dolores 2 Miller) flash glucose sensor (FreeStyle #1 ea 03/10/24 5 Unknown Rx Dolores 14 Day Sensor kit) flash glucose sensor (FreeStyle #1 ea 05/18/24 5 Unknown Rx Dolores 2 Sensor kit) blood-glucose meter #1 ea 05/28/24 05/03/25 Unkn own Rx tirzepatide 7.5 mg/0.5 mL 7.5 mg (0.5 mL) SUBCUT .week ly #6 11/10/24 05/13/25 05/08/25 Rx subcutaneous pen injector mL (Mountaylorro) blood sugar diagnostic (OneTouch #100 ea 11/23/2404/09 Unknown Rx Verio test strips) meloxicam 15 mg tablet 15 mg PO DAILY PRN joint cassius n #30 03/21/25 05/13/25 05/12/25 Rx tabs blood sugar diagnostic (True #100 ea 03/29/25 05/03/25 Unknown Rx Metrix Glucose Test Strip) metformin 1,000 mg tablet 1,000 mg PO BIDWMEAL #180 ta bs 05/10/25 05/16/25 05/14/25 Rx zolpidem 5 mg tablet (Ambien) 5 mg PO DAILY 05/13/25 0 05/13/25 05/12/25 History Allergies Allergy/AdvReac Type Severity Reaction Status Date / Time gabapentin Allergy Severe Unknown Verified 05/16/25 06:06 Iodinated Contrast Media Allergy Severe ALGY-Anaphy Verified 05/16/25 06:06 laxis red dye Allergy Severe ALGY-Anaphy Verified 05/16/25 06:06 laxis [facility] Anesthesia Medical History Neuropathy of lower extremity Neuropathy, upper extremity Brain atrophy DDD (degenerative disc disease), cervical Poorly controlled diabetes mellitus Left knee injury Disability examination Joint pain Poor control type I diabetes mellitus Diabetes Hyperlipemia HTN (hypertension) Coronary artery disease due to type 2 diabetes mellitus Hyperlipidemia Surgical History Hx of cervical spine surgery Surgery with Dr. Chavez [facility] Social History Smoking and tobacco/nicotine status: never used tobacco/nicotine
--- NOTE | 2025-05-16 06:23 | W.PM.OPSUD ---
Surgery/Procedure H&P Update DATE OF PROCEDURE: May 16, 2025 DATE H&P PERFORMED: 05/03/25 H&P UPDATE INFORMATION: I have reviewed H&P completed within last 30 days, I have examined patient prior to procedure and No changes to prior documentation PREOP DIAGNOSIS: Cervical stenosis with myelopathy PLANNED PROCEDURE: Operation Date: 05/16/25 07:00 Proposed Procedures p Anterior Cervical Discectomy & Fusion ACDF(Not Applicable) - Solomon Nicolas DO s Hardware Removal Cervical(Not Applicable) - Solomon Nicolas DO
[2025-05-16] MEDS: ceFAZolin 2,000 mg SDV 2000 MG IVP (06:57)
[2025-05-16] MEDS: lidocaine-epi 1% 20 mL INJ INJECTION (07:30)
--- NOTE | 2025-05-16 08:31 | PM.OP ---
Operative Report Date of procedure: May 16, 2025 Pre-op diagnosis: Cervical stenosis with myelopathy Post-op diagnosis: same Procedure done: 1. Anterior diskectomy C4/5 2. Insertion of cage C4/5 3. Instrumentation from C4-C5 4. Use of allograft Surgeon: Solomon Nicolas DO Estimated blood loss (mL): 5 Procedure: 1. Anterior diskectomy C4/5 2. Insertion of cage C4/5 3. Instrumentation from C4-C5 4. Use of allograft The patient was taken to the operating room, where he underwent general endotracheal anesthesia without complications. He was then positioned supine on the operating table, and all areas of impingement were well padded. The arms were carefully padded and tucked at his sides. A roll was placed between the shoulder blades.. An x-ray was done to determine the appropriate level for the skin incision. The entire neck was then sterilely prepped and draped in the usual fashion. Neuromonitoring was attached prior to prepping. A transverse skin incision was made and carried down to the platysma muscle. This was then split in line with its fibers. Blunt dissection was carried down medial to the carotid sheath and lateral to the trachea and esophagus until the anterior cervical spine was visualized. A needle was placed into a disc and an x-ray was done to determine its location. The longus colli muscles were then elevated bilaterally with the electrocautery unit. Self-retaining retractors were placed deep to the longus colli muscle. Attention was brought to the C4/5 level that was confirmed on x-ray. The microscope was then brought in. A radical anterior discectomies were performed at C4/5. This included complete removal of the anterior annulus, nucleus, and posterior annulus. The posterior longitudinal ligament was removed as were the posterior osteophytes. Foraminotomies were then accomplished bilaterally. This was done using a high speed priya, kerrison rongeurs and curretes Once all of this was accomplished, the curved currette was used to check for any residual compression. The central canal was wide open as were the foramen. A high-speed bur was used to remove the cartilaginous endplates above and below the interspace. Bleeding cancellous bone was exposed. The disc space were measured and appropriate size cage were placed sterilely onto the field. Allograft graft was packed into the cages. The cage was then placed and there was good juxtaposition against the bleeding decorticated surfaces and good distraction of each interspace. Bone wax was used to prevent any bleeding from occurring at the pin sites. Screws were then placed into each of the vertebral bodies at C4 and 5. There was excellent purchase. A final x-ray was done confirming good position of the hardware and Cages. The locking screws were then applied, also with excellent purchase. Following a final copious irrigation, there was good hemostasis and no dural leaks. The carotid pulse was strong. The wounds were then closed in layers using 2-0 Vicryl suture for the platysma muscle, 2-0 Vicryl suture for the subcutaneous tissue, and 4-0 monocryl suture in a subcuticular skin closure. Glue was placed followed by application of a sterile dressing. The drain was hooked to bulb suction. A soft collar was applied. The patient was then carefully returned to the supine position on his hospital bed where he was reversed and extubated and taken to the recovery room having tolerated the procedure well.
[2025-05-16] MEDS: HYDROcodone-acetaminophen 5-325 mg Tablet 1 TAB PO (09:43)
--- NOTE | 2025-05-16 10:00 | ANE.PACU2 ---
Inpatient post-anesthesia follow up: Airway intact: Yes Vital signs: Temperature 98.1 F Pulse Rate 81 Respiratory Rate 17 Blood Pressure 140/79 Pulse Oximetry 98 Oxygen Delivery Me thod Room Air Oxygen Flow Rate 6 Fraction of Inspir ed Oxygen Hydration adequate: Yes Nausea and vomiting: No Pain level: 1 Mental status: Baseline
--- NOTE | 2025-05-16 10:39 | SUR.PHASEII ---
0940 patient requesting a pain pill for neck pain 0950 pt requested to go home and has not had any problems with hydrocodone before in the past,instructed pt and family if he has any issues they need to contact me or Dr. Nicolas, everyone verbalized understanding
--- NOTE | 2025-05-16 15:14 | XR_ITS ---
WS: [id number] Cervical spine, C-arm fluoroscopy views, 05/16/2025 Clinical Data: or pic, acdf Comparison: Cervical spine, 04/19/2025 Findings: Dr. Nicolas performed an anterior cervical disc fusion at C4-C5 with accompanying artificial disc. XR/XR cervical spine 3V* [id number] Impression: Anterior cervical disc fusion C4-C5.
--- NOTE | 2025-06-27 08:42 | PM.DCS ---
Discharge Providers Date of Admission: 05/16/25 05:32 Date of Discharge: May Attending Provider at Admission: Soloomn Nicolas DO Attending Provider at Discharge: Solomon Nicolas DO Primary Care Provider: Vick Dutta Reason for Visit Reason for Visit: G99.2 Discharge Data Studies Completed and Pending Completed Studies During Hospitalization Category Date Time Status XR cervical spine 3V* [id number] Routine Exams 05/16/25 15:14 Completed Radiology Impressions Cervical Spine X-Ray 05/16/25 15:14 Impression: Anterior cervical disc fusion C4-C5. Laboratory Results POC Glucose 125 mg/dL (70-110) H 05/16/25 06:17 Vitals Last Vital Signs Temp 98.1 F 05/16/25 09:23 Pulse 81 05/16/25 09:23 Resp 17 05/16/25 09:23 BP 140/79 05/16/25 09:23 Pulse Ox 98 05/16/25 09:23 O2 Del Method Room Air 05/16/25 09:23 O2 Flow Rate 6 05/16/25 08:42 Discharge Plan Discharge Patient Disposition: Home Condition: Stable Prescriptions: Continued Mounjaro 7.5 mg/0.5 mL pen injector 7.5 mg SUBCUT .weekly Qty: 6 3RF Rx Instructions: 3 month rx (DME) FreeStyle Dolores 14 Day Sensor Kit See Rx Instructions .Route Qty: 1 6RF Rx Instructions: As directed (DME) FreeStyle Dolores 2 [place] Misc See Rx Instructions .Route Qty: 1 0RF Rx Instructions: As directed (DME) FreeStyle Dolores 2 Sensor Kit See Rx Instructions .Route Qty: 1 5RF Rx Instructions: As directed (DME) blood-glucose meter Kit See Rx Instructions .Route Qty: 1 0RF Rx Instructions: use to check blood sugar daily and as needed, One Touch system (DME) OneTouch Verio test strips Strip See Rx Instructions .ROUTE .COMPLEX Qty: 100 5RF Dose Instruction: USE DIRECTED TO CHECK BLOOD SUGAR DAILY Rx Instructions: USE DIRECTED TO CHECK BLOOD SUGAR 3 times a day (DME) True Metrix Glucose Test Strip Strip See Rx Instructions .Route Qty: 100 0RF Rx Instructions: USE TO CHECK BLOOD SUGAR DAILY AND NEEDED one touch verio flex metformin 1,000 mg tablet 1,000 mg PO BIDWMEAL Qty: 180 0RF zolpidem [Ambien] 5 mg tablet 5 mg PO DAILY Rx Instructions: as long as it doesnt have red dye in it Held meloxicam 15 mg tablet 15 mg PO DAILY PRN (Reason: joint pain) Qty: 30 1RF Hold Instructions: Resume on 05/18/25. tramadol 50 mg tablet 50 mg PO Q6H PRN (Reason: pain) 5 Days Qty: 20 0RF Hold Instructions: Resume on 05/18/25. do not take tramadol with hydrocodone No Action meloxicam 15 mg tablet 15 mg PO DAILY Qty: 30 2RF (DME) Bone Growth Stimulator See Rx Instructions .Route .MEDSUPPLY Qty: 1 0RF Rx Instructions: As directed hydrocodone-acetaminophen 10-325 mg tablet 1 tab PO Q8H 7 Days Qty: 21 0RF Discharge Order = DC NOW: Discharge Order (Routine); Ordered 05/16/25 Ordered By: Solomon Nicolas Referrals: Solomon Nicolas, [Physician, Orthopedics] - 05/31/25 8:45 am Discharge Diet: Advance as tolerated Discharge Activity: Limit activity as instructed Patient Instructions: Acute Wound Care (DC), Post Anesthesia Care Activity Restrictions/Additional Instructions: Thank you for choosing [facility] for your care! The following is a list of instructions, from your provider, to follow upon your discharge to ensure you have the optimal recovery from your recent injury or surgery. Anterior Cervical Discectomy and Fusion: What to Expect at Home Your Recovery Follow-up care is a to part of your treatment and safety. Be sure to make and go to all appointments, and call your doctor if you are having problems. If you do not already have a follow-up appointment made, call office in the next 1-3 days to make follow up appointment for 2 weeks at [phone]. It is also a good idea to know your test results and keep a list of the medicines you take. You can expect your neck to feel stiff or sore after surgery. This should improve in the weeks after surgery. But it may take 4 to 6 months for you to get better completely. You may have trouble sitting or standing in one position for very long and may need pain medicine in the weeks after your surgery. It may take 4 to 6 weeks to get back to your usual activities, but it may depend on what kind of surgery you had. Your throat will feel sore and it may be difficult to swallow for the first 3 days after your surgery. As long as you can get liquids down without difficulty, this should slowly improve, otherwise call our office or seek medical attention if it becomes increasingly difficult to get anything down including liquids. Avoid hot liquids for first 3-5 days. Soothing foods/liquids such as jello, pudding, and luke warm soups are recommended until swallowing improves. Staying elevated will also help, it's advised you keep propped up at while sleeping to help reduce the swelling. You may use an ice pack directly on your incision or around it on the front of your neck, using a cloth to protect your skin; and a heating pad to the back of your neck as needed. Do not use over the counter anti-inflammatory medications (Ibuprofen, Motrin, Aleve, Advil, etc) Taking these meds after having a fusion can delay fusion rates, we recommend you avoid them for the first 3 [address] your surgery[address] Dr. Nicolas may advise you to work with a physical therapist to strengthen the muscles around your neck and back - this will be discussed at your follow - up appointments. The pain or numbness you were having in your arms before surgery should get better or go away completely. This care sheet gives you a general idea about how long it will take for you to recover. But each person recovers at a different pace. Follow the steps below to get better as quickly as possible. How can you care for yourself at home? Activity ? Rest when you feel tired. Getting enough sleep will help you recover. ? Try to walk each day. Start by walking a little more than you did the day before. Bit by bit, increase the amount you walk. Walking boosts blood flow and helps prevent pneumonia and constipation. Walking may also decrease your muscle soreness after surgery. ? No lifting anything that is more that 5 pounds. This may include heavy grocery bags and milk containers, a heavy briefcase or backpack, cat litter or dog food bags, a child, or a vacuum yard cleaner. ? Avoid strenuous activities, such as bicycle riding, jogging, weightlifting, or aerobic exercise, until your doctor says it is okay. ? Do not drive until your follow-up visit after your surgery, or until your doctor says it isokay. ? Avoid taking long car trips for 2 to 4 weeks after surgery. Your neck may become tired and painful from sitting too long in one position. ? You will probably need to take 4 to 6 weeks off from work. It depends on the type of work you do and how you feel. ? You may have sex as soon as you feel able, but avoid positions that put stress on your neck or cause pain. Diet ? You can eat your normal diet. If your stomach is upset, try bland, low-fat foods like plain rice, broiled chicken, toast, and yogurt ? Drink plenty of fluids. If you have kidney, heart, or liver disease and have to limit fluids, talk with your doctor before you increase the amount of fluids you drink. ? You may notice that your bowel movements are not regular right after your surgery. This is common. Try to avoid constipation and straining with bowel movements. You may want to take a fiber supplement every day. If you have not had a bowel movement after a couple of days, ask your doctor about taking a mild laxative. Medicines ? Take pain medicines exactly as directed. 1. If Dr. Nicolas gave you a prescription medicine for pain, take lt as prescribed. 2. Do not take two or more pain medicines at the same time unless the doctor told you to. Many pain medicines have acetaminophen, which is Tylenol. Too much acetaminophen {Tylenol) can be harmful. 3. If you think your pain pill is making you sick to your stomach: 4. Take your pills after meals (unless your doctor has told you not to). 5. Ask your Dr. for a different pain pill. Incisioncare ? Remove your dressing 48hours after your surgery. Ok to shower and get the incision wet. Do not overtly wash your incision. When done, pad dry, leave open to air thereafter. Avoid creams and ointments directly on your incision. ? Your sutures in the incision will dissolve and fall out on their own. ? Keep the area clean and dry. You may cover it with a gauze bandage if it weeps or rubs against clothing; if you choose to do this, change the dressing everyday. Other instructions ? Use a heating pad, hot water bottle, or gentle massage on your back to reduce stiffness. Avoid putting heat on your incision When should you call for help? ? Call 911 anytime you think you may need emergency care. For example, call if: ? You pass out (lose consciousness). ? You have sudden chest pain and shortness of breath, or you cough upblood. ? You cannot swallow. ? You have severe pain in your neck or back. ? Call your Dr. or seek immediate medical care if: ? You have pain that does not get better after you take pain pills. ? You have loose stitches, or your incision comes open. ? You have blood or fluid draining from the incision. ? You have signs of infection, such as: 1. Increased pain, swelling, warmth, or redness. 2. Red streaks leading from the site. 3. Pus draining from the site. 4. Swollen lymph nodes in your neck or armpits. 5. A fever. ? You have severe pain in your arms. ? You have new or increased weakness or numbness in your arms. ? Watch closely for any changes in your health, and be sure to contact your doctor if: ? You do not have a bowel movement after taking a laxative. Discharge Attestations Time Spent in Discharge Care*: less than 30 min Quality Metrics Clinical Quality Measures [ No reported AMI, CVA or VTE this stay] Coding Level of Care Code Acute Code for Chg Fwd
== END 2025-05-16 10:00 | disposition home or self-care (01) | DRG 472 ==
LOC: OR 08:42 → MEDSURG 10:24
PROVIDERS: Admitting Provider Orthopaedic Surgery; PCP Nurse Practitioner Family; Visit Provider Orthopaedic Surgery
PROC: 0RB30ZZ Excision of Cervical Vertebral Disc, Open Approach (ICD-10-PCS; CPT 22551; principal; 2025-05-16 07:00)
PROC: 0RG10A0 Fusion of Cervical Vertebral Joint with Interbody Fusion Device, Anterior Approach, Anterior Column, Open Approach (ICD-10-PCS; 2025-05-16 07:00)
DX: M50.021 Cervical disc disorder at C4-C5 level with myelopathy (principal); G95.89 Other specified diseases of spinal cord; M48.02 Spinal stenosis, cervical region; Z79.84 Long term (current) use of oral hypoglycemic drugs; Z79.85 Long-term (current) use of injectable non-insulin antidiabetic drugs; E11.40 Type 2 diabetes mellitus with diabetic neuropathy, unspecified; E11.59 Type 2 diabetes mellitus with other circulatory complications; E78.5 Hyperlipidemia, unspecified; I10 Essential (primary) hypertension
CPT/HCPCS: 36416; 72040; 76000; 82962; 93005; C1713; C9359; J0690; J1100; J2250; J2371; J2405; J2704; J3010; J3490; J7030; J9999; P9045

== ENCOUNTER → 2025-05-31 15:48 | Outpatient (BNVA) | payer MEDICARE, SELFPAY | PROVIDERS: PCP Nurse Practitioner Family; Visit Provider Orthopaedic Surgery | DX: Z98.890 Other specified postprocedural states (principal) | CPT/HCPCS: 99024 ==

== ENCOUNTER → 2025-06-28 08:02 | Outpatient (BNVA) | payer MEDICARE, SELFPAY | PROVIDERS: PCP Nurse Practitioner Family; Visit Provider Orthopaedic Surgery | DX: Z98.890 Other specified postprocedural states (principal) | CPT/HCPCS: 72040; 99024 ==

== ENCOUNTER → 2025-06-29 11:10 | Outpatient (BNVA) | payer MEDICARE, SELFPAY | PROVIDERS: PCP Nurse Practitioner Family; Visit Provider Nurse Practitioner Family | DX: I10 Essential (primary) hypertension (principal); E11.59 Type 2 diabetes mellitus with other circulatory complications; I25.10 Atherosclerotic heart disease of native coronary artery without angina pectoris | CPT/HCPCS: 80053; 83036 ==

== ENCOUNTER → 2025-08-09 07:56 | Outpatient (BNVA) | payer MEDICARE, SELFPAY | PROVIDERS: PCP Nurse Practitioner Family; Visit Provider Orthopaedic Surgery | DX: Z98.890 Other specified postprocedural states (principal) | CPT/HCPCS: 72040; 72072; 72100; 99024 ==

== ENCOUNTER → 2025-08-30 10:22 | Outpatient (BNVA) | payer MEDICARE, SELFPAY | PROVIDERS: PCP Nurse Practitioner Family; Visit Provider Thoracic Surgery (Cardiothoracic Vascular Surgery) | DX: E11.52 Type 2 diabetes mellitus with diabetic peripheral angiopathy with gangrene (principal); E11.621 Type 2 diabetes mellitus with foot ulcer; L97.511 Non-pressure chronic ulcer of other part of right foot limited to breakdown of skin | CPT/HCPCS: 97597; A6212; A6248 ==

== ENCOUNTER → 2025-09-07 09:05 | Outpatient (BNVA) | payer MEDICARE, SELFPAY | PROVIDERS: PCP Nurse Practitioner Family; Visit Provider Thoracic Surgery (Cardiothoracic Vascular Surgery) | DX: E11.52 Type 2 diabetes mellitus with diabetic peripheral angiopathy with gangrene (principal); E11.621 Type 2 diabetes mellitus with foot ulcer; L97.511 Non-pressure chronic ulcer of other part of right foot limited to breakdown of skin | CPT/HCPCS: 97597; J9999 ==